=== PATIENT | female | born 1995 | race Caucasian/White ===

== ENCOUNTER → 2019-01-06 | Outpatient (CLI) | payer OTHER ==
[~2019-01-06] MED LIST: HYDROCODONE-APA1 TA1 PO; VYVANSE40 MG PO; WELLBUTRIN SR150 MG PO; ZOLOFT25 MG PO
== END ==
LOC: M.ULTRA 10:28
DX: R10.2 Pelvic and perineal pain (principal); R14.0 Abdominal distension (gaseous)

== ENCOUNTER 2019-10-28 08:17 | Emergency (ER) | payer OTHER ==
[~2019-10-28] VITALS: Ht 180.3 cm; Wt 72.6 kg
[2019-10-28 09:50] VITALS: BP 111/74
[2019-10-29] MEDS ORDERED: ZOFRAN ODT4 MG PO (19:33)
[2019-10-29] MEDS ORDERED: CYCLOBENZAPRINE5 MG PO (19:33)
== END 2019-10-28 09:52 | disposition home or self-care (01) ==
LOC: M.ERS 08:17
DX: S00.83XA Contusion of other part of head, initial encounter (principal); S10.93XA Contusion of unspecified part of neck, initial encounter; Z90.49 Acquired absence of other specified parts of digestive tract; Z87.440 Personal history of urinary (tract) infections; W00.0XXA Fall on same level due to ice and snow, initial encounter; Y93.89 Activity, other specified; Y92.89 Other specified places as the place of occurrence of the external cause; Y99.8 Other external cause status

== ENCOUNTER 2019-10-29 17:44 | Emergency (ER) | payer OTHER ==
[~2019-10-29] VITALS: Ht 180.3 cm; Wt 72.6 kg
[2019-10-29 18:47] LABS: HEMATOCRIT 46.7 % (37.0-47.0); HEMOGLOBIN 16.2 gm/dL (12.0-15.0); MCH 31.2 pg (26.0-34.0); MCHC 34.8 g/dL (28.0-37.0); MCV 89.7 fL (80.0-100.0); MPV 9.4 fl. (7.2-11.1); NUCLEATED RBCS 0 /100WBC; PLATELET COUNT* 241 thou/uL (150-400); RDW-CV 12.8 % (10.5-14.5); WBC 8.5 thou/uL (4.0-11.0)
[2019-10-29 18:48] LABS: URINE BILIRUBIN NEGATIVE (Negative); URINE BLOOD TRACE (Negative); URINE CLARITY CLEAR; URINE COLOR YELLOW; URINE GLUCOSE-RANDOM NEGATIVE (Negative); URINE KETONES 2+ (Negative); URINE LEUKOCYTES NEGATIVE (Negative); URINE NITRITE NEGATIVE (Negative); URINE PROTEIN NEGATIVE (Negative); URINE UROBILINOGEN 0.2 E.U./dl (0.2-1.0)
[2019-10-29 18:56] LABS: CALCIUM 9.4 mg/dL (8.5-10.1); CREATININE 0.8 mg/dL (0.6-1.3); POTASSIUM 4.3 mmol/L (3.5-5.1)
[2019-10-29 19:03] LABS: ALBUMIN 4.2 g/dL (3.4-5.0); TOTAL BILIRUBIN 1.5 mg/dL (<0.1-1.0); TOTAL PROTEIN 8.6 g/dL (6.4-8.2)
[2019-10-29 19:09] LABS: INFLUENZA A ANTIGEN Negative (Negative); INFLUENZA B ANTIGEN Negative (Negative)
[2019-10-29] MEDS ORDERED: ZOFRAN ODT4 MG PO (19:33)
[2019-10-29] MEDS ORDERED: CYCLOBENZAPRINE5 MG PO (19:33)
[2019-10-29 19:39] VITALS: BP 118/62
[2019-10-29 19:47] LABS: PLATELET ESTIMATE ADEQUATE
[2019-10-29 19:48] LABS: ABSOLUTE EOSINOPHILS 0.1 thou/uL (0.0-0.7); ABSOLUTE LYMPHOCYTES 0.3 thou/uL (0.8-5.3); ABSOLUTE MONOCYTES 0.1 thou/uL (0.0-1.2)
--- NOTE | 2019-10-30 09:19 | EKG ---
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1995 Requested By: Antoinette Viera Order Number: [id number] MD: Derick Lemus Measurements Intervals [place] Rate: 61 P: -6 ND: 147 QRS: 77 QRSD: 77 T: 30 QT: 389 QTc: 392 Interpretive Statements Sinus rhythm Compared to ECG 02/08/2017 11:47:12 Sinus tachycardia no longer present Electronically Signed On 10-30-2019 9:18:33 VOUCHER EXAMINER by Derick Lemus [email or web address] <ELECTRONICALLY SIGNED> By: Derick Lemus MD, [facility] 10/30/1917 1843 1843 Derick Lemus MD, [facility] /EPI
== END 2019-10-29 19:40 | disposition home or self-care (01) ==
LOC: M.ERS 17:44
PROVIDERS: Physician Assistant
DX: S06.0X0A Concussion without loss of consciousness, initial encounter (principal); E86.0 Dehydration; Z90.49 Acquired absence of other specified parts of digestive tract; Z87.440 Personal history of urinary (tract) infections; W18.39XA Other fall on same level, initial encounter; Y93.89 Activity, other specified; Y92.89 Other specified places as the place of occurrence of the external cause; Y99.8 Other external cause status

== ENCOUNTER 2020-06-20 05:52 | Emergency (ER) | payer OTHER ==
[~2020-06-20] VITALS: Ht 180.3 cm; Wt 68.0 kg
[~2020-06-20 05:52] MED LIST changes: +CYCLOBENZAPRINE5 MG PO; +ZOFRAN ODT4 MG PO
[2020-06-20] MEDS ORDERED: PNV 29-1 TABLE1 EACH PO (06:01)
[2020-06-20 07:17] VITALS: BP 152/85
== END 2020-06-20 07:18 | disposition home or self-care (01) ==
LOC: M.ERS 05:52
DX: O26.891 Other specified pregnancy related conditions, first trimester (principal); B34.9 Viral infection, unspecified; Z20.828 Contact with and (suspected) exposure to other viral communicable diseases; Z90.49 Acquired absence of other specified parts of digestive tract; Z3A.01 Less than 8 weeks gestation of pregnancy; O23.41 Unspecified infection of urinary tract in pregnancy, first trimester

== ENCOUNTER → 2020-09-01 | Outpatient (CLI) | payer OTHER ==
[~2020-09-01] MED LIST changes: +PNV 29-1 TABLE1 EACH PO
[2020-09-02 02:06] LABS: GLYCOHEMOGLOBIN (HGB A1C) 4.9 % (4.8-5.6)
== END ==
LOC: M.LAB 15:14
DX: Z34.91 Encounter for supervision of normal pregnancy, unspecified, first trimester (principal)